=== PATIENT | female | born 1990 | race Caucasian/White ===

== ENCOUNTER 2020-10-11 21:25 | Emergency (ER) | payer OTHER ==
[~2020-10-11] VITALS: Ht 167.6 cm; Wt 54.5 kg
[2020-10-11] MEDS ORDERED: diphenhydrAMINE 50MG/ML VIAL (J1200) IM STA (23:06)
[2020-10-12 00:21] LABS: BASO # 0.1 10^3/uL (0.0-0.2); BASO % 1.4 % (0.0-1.0); EOS # 0.1 10^3/uL (0.0-0.5); EOS % 1.4 % (0.0-3.0); HEMOGLOBIN 14.5 g/dl (12.0-15.5); LYMPH # 2.1 10^3/uL (1.5-5.0); LYMPH % 42.4 % (24.0-44.0); MEAN CORPUSCULAR HEMOGLOBIN 29.7 pg (27.0-33.0); MEAN CORPUSCULAR HGB CONC 34.5 g/dl (32.0-36.5); MEAN CORPUSCULAR VOLUME 86.1 fl (80.0-96.0); MONO # 0.5 10^3/uL (0.0-0.8); MONO % 10.9 % (2.0-8.0); NEUTROPHILS # 2.1 10^3/uL (1.5-8.5); NEUTROPHILS % 43.7 % (36.0-66.0); PLATELET COUNT, AUTOMATED 291 10^3/uL (150-450); RED BLOOD COUNT 4.88 10^6/uL (4.00-5.40); WHITE BLOOD COUNT 4.9 10^3/uL (4.0-10.0)
[2020-10-12 00:51] LABS: RSV AMPLIFICATION NEGATIVE (NEGATIVE)
[2020-10-12 00:53] LABS: HCG, SERUM QUALITATIVE NEGATIVE (NEGATIVE)
[2020-10-12 00:57] LABS: ACETAMINOPHEN LEVEL < 2.0 UG/ML (10.0-30.0); ALBUMIN 4.2 GM/DL (3.2-5.2); ALT/SGPT 14 U/L (12-78); BILIRUBIN,DIRECT 0.2 MG/DL (0.0-0.2); BILIRUBIN,TOTAL 0.6 MG/DL (0.2-1.0); BLOOD UREA NITROGEN 7 MG/DL (7-18); CARBON DIOXIDE LEVEL 27 MEQ/L (21-32); CHLORIDE LEVEL 107 MEQ/L (98-107); CREATININE FOR GFR 0.57 MG/DL (0.55-1.30); ETHYL ALCOHOL (ETHANOL) < 0.003 % (0.000-0.010); GLOMERULAR FILTRATION RATE > 60.0 (>60); GLUCOSE, FASTING 90 MG/DL (70-100); POTASSIUM SERUM 3.5 MEQ/L (3.5-5.1); SALICYLATE LEVEL 4.4 MG/DL (5.0-30.0); SODIUM LEVEL 141 MEQ/L (136-145)
[2020-10-12 06:18] LABS: AMPHETAMINES LEVEL URINE POSITIVE (NEGATIVE); BARBITURATES URINE NEGATIVE (NEGATIVE); BENZODIAZEPINES URINE NEGATIVE (NEGATIVE); CANNABINOIDS URINE POSITIVE (NEGATIVE); COCAINE METABOLITE URINE NEGATIVE (NEGATIVE); METHADONE URINE NEGATIVE (NEGATIVE); OPIATES URINE NEGATIVE (NEGATIVE); PHENCYCLIDINE URINE NEGATIVE (NEGATIVE)
[2020-10-12 12:03] VITALS: BP 145/79
--- NOTE | 2020-10-12 13:24 | ECGEPIP ---
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
== END 2020-10-12 12:05 | disposition home or self-care (01) ==
LOC: EDBD 21:25 → M ED 21:25
DX: F15.10 Other stimulant abuse, uncomplicated (principal)
CPT/HCPCS: 36415; 80048; 80076; 80143; 80307; 82077; 84443; 84703; 85025; 87631; 93005; 96372; 99284; J1200

== ENCOUNTER 2020-10-29 10:50 | Inpatient (IN) | payer MEDICAID, OTHER ==
[~2020-10-29] VITALS: Ht 160 cm; Wt 56.7 kg
[2020-10-29] MEDS: NICOTINE 21MG/24HR 1 EA TRANSDERMAL TD SCH (09:00)
[2020-10-29] MEDS ORDERED: traZODone 50 MG TAB PO PRN (17:15)
[2020-10-29] MEDS ORDERED: ACETAMINOPHEN TAB 650MG DOSE (2X325MG) PO PRN (17:15)
[2020-10-29] MEDS ORDERED: MOM 30ML SUSPENSION UDC PO PRN (17:15)
[2020-10-29] MEDS ORDERED: LORazepam 1 MG TAB PO PRN (17:15)
[2020-10-29] MEDS ORDERED: MAALOX 30 ML SUSP *UDC PO PRN (17:15)
[2020-10-29 18:40] VITALS: BP 119/61
[2020-10-30 06:15] VITALS: BP 122/66
[2020-10-30] MEDS: NICOTINE 21MG/24HR 1 EA TRANSDERMAL TD SCH (09:00)
--- NOTE | 2020-10-30 12:49 | MHHPEPDOC ---
General Date Of Admission: October 30, 2020 Legal Status: 9.39 Chief Complaint I'm feeling sick and feeling crappy and I need to help her been using methamphetamine and Suboxone off the street ". History of Present Illness HISTORY OF THE PRESENT ILLNESS: Patient is a 30 -year-old , female, who [has a long history of substance abuse and one previous admission 2 years of but no current outpatient treatment. Patient was transferred from the other hospital by ambulance after she presented herself asking for help. She states that she is been homeless, has been using methamphetamine and Xanax up to 6 mg a day, but her last use was about a week and doesn't think that she would have any acute withdrawal. She is however complaining of feeling sick because she is withdrawing from Suboxone, also feeling depressed but denies any suicidal thoughts. She is asking for immediate relief such as Suboxone or other medicines and is quite demanding and pressured and dramatic. She denies any hallucination, paranoia, denies any ongoing depression and denies any suicidal thoughts, but wants to feel better and wants to go to possibly inpatient rehabilitation. She is again very much demanding and dramatic, and seeking medications to give her immediate relief although her vital signs are within normal limits and she is not showing any other clinical withdrawal symptoms.]. Psychiatric Review of Systems Depression (2 or more weeks): depressed mood, feelings of worthlesness Radha (4 or more days of): denies Psychosis: denies PTSD: denies Anxiety: situational anxiety Past Psychiatric History Previous Psychiatric Diagnosis: [Primarily. Polysubstance abuse]. Previous Psychiatric Admissions: [Was hospitalized 2 years ago once]. Suicide Attempts: [Denies any suicidal attempt history]. Psychiatric Follow-up: [, Not attending any outpatient treatment]. Psychiatric medications: [None]. Past Medical History Medical Problems She denies any major medical history Head Injury: No Seizures: No Hospitalizations: No Surgeries: No Family Medical/Psychiatric HX Psychiatric Disorders: No Addiction: No Suicide Attemps/Completions: No Addiction History amphetamines, opioids, methamphetamines Social History Childhood: [Unremarkable. Abuse/Trauma:[Denies]. Current Living Situation: Homeless for several days]. Education: [GED]. Employment: [, Currently unemployed. History of]. Social Support: Mother]. Legal: [Denies]. Marital: [, Single]. Mental Status Examination General Appearance: unkempt Build: average Demeanor: average, very figety Eye Contact: avoidant Activity: agitated Behavior: uncooperative, restless, other (demanding Suboxone for immediate relief) Speech: rapid, pressured, non-spontaneous Mood: anxious, irritable Affect: full, labile Thought Process: logical/linear Thought Content (Delusions): none reported Thought Content (Other): none reported Thought Content (Aggressive): none reported Perception (Hallucinations): none reported Perception (Other): none reported Cognition (Impairment of): none reported Cognition(Intelligence Est.): average Oriented: Awake, Alert, Oriented times three Insight: poor Judgment: Poor Diagnoses Adjustment disorder with mixed emotion , Polysubstance abuse A-FIB/CHADSVASC A-FIB History Current/History of A-Fib/PAF?: No Current PO Anticoag Therapy: No Age/Risk Factor Scoring CHADSVASC: CHADSVASC Response (Comments) Value Gender Risk Factor Female 1 Hx of CHF No 0 Hx of HTN No 0 Hx of Stroke/TIA/or VTE No 0 Hx of Diabetes No 0 Hx of Vascular Disease No 0 Total 1 Treatment Treatment ordered: NONE Assessment Primarily, polysubstance abuse with the med seeking behavior, complaining of withdrawal symptoms, but no clinical signs or symptoms of severe withdrawal . We will use appropriate when necessary medications with firm supportive approach and consider referring to inpatient rehabilitation treatment Initial Treatment Plan 1. Patient was admitted on a [9.39] status. 2. Complete history was obtained. 3. With patients permission, family will be contacted and database will be expanded. 4. Patients medication regimen will be reviewed and changed accordingly. 5. Patient will be provided with protected environment. 6. Patient will be treated with individual, group, and milieu therapies. 7. Patient will receive supportive psych-education. 8. Discharge planning will commence immediately. 9. Outpatient follow-up treatment will be strongly recommended. 10. The initial treatment plan will focus initially on: * Depression. * Risk for suicide. ESTIMATED LENGTH OF STAY: [3]-[5] DAYS. TIME SPENT COUNSELING AND COORDINATING INITIAL CARE: [40] minutes. Tobacco Cessation Screen If Patient is a Smoker Patient denies being a smoker N/A-No Antipsychotics Vital Signs Vital Signs Date Time Temp Pulse Resp B/P (MAP) Pulse Ox O2 Delivery O2 Flow Rate FiO2 5 10:11 Room Air 5/15/21 06:15 98.1 56 16 122/66 (84) 96 Medications No Active Prescriptions or Reported Meds Allergies Coded Allergies: Penicillins (Verified Allergy, Unknown, 10/11/20) Sulfa (Sulfonamide Antibiotics) (Verified Allergy, Unknown, 10/11/20) KAYODE CONTEH M.D. October 30, 2020 12:49
[2020-10-30] MEDS: OLANZapine ORAL DISINTEGRATING TAB 5MG PO PRN (13:14)
[2020-10-30 13:26] VITALS: BP 131/94
[2020-10-30 16:38] VITALS: BP 116/72
[2020-10-31] MEDS: NICOTINE 21MG/24HR 1 EA TRANSDERMAL TD SCH (09:00)
--- NOTE | 2020-10-31 09:31 | MHIPNPDOC ---
[facility] Progress Note Progress Note DATE OF SERVICE: 10/31/20 On admission, patient was quite demanding of certain medications and was quite agitated. She has a settled down since and is in no acute distress slept with th e increase the trazodone and this morning she has no new complaints. She is in bed in no acute distress and states that she needs help with inpatient rehabilitation treatment, is willing to cooperate. She has not shown any acute withdrawal symptoms, is in no physical distress and no aggressive or suicidal behavior. She is still very childish, pressured but not as hostile or angry and willing to cooperate. She wants help and she denies any suicidal thoughts HISTORY: . VITAL SIGNS: See below. NEW TEST RESULTS: . CURRENT MEDICATIONS: See below. MENTAL STATUS EXAMINATION: Patient is a [30]-year old female, who is [in bed, but alert, awake and cooperative]. Speech: Is [pressured but rational]. Language skills are [fair]. Thought processes including: [, Relevant, organized]. Thought content: [Without any psychotic symptoms]. Abstract reasoning, and computation: [, Fair]. Description of associations: , Organized. Description of abnormal or psychotic thoughts: [None]. Judgment: [, Poor]. Insight: [ poor]. Orientation: [, Oriented]. Recent and remote memory: [Fair]. Attention span and concentration: [Fair]. Language: . Fund of knowledge: Below average . Mood: [, Mildly anxious]. Affect: [Dramatic and labile]. DIAGNOSES: 1. . Adjustment disorder with mixed emotion 2. ., Polysubstance abuse 3. . ASSESSMENT:[, Not as labile, not as demanding and in better control and cooperate] MANAGEMENT PLAN: [. Continue with supportive therapy and consider inpatient rehabilitation treatment]. TIME SPENT: [15] minutes. Vital Signs Vital Signs Date Time Temp Pulse Resp B/P (MAP) Pulse Ox O2 Delivery O2 Flow Rate FiO2 10/31/20 08:42 Room Air 10/30/20 16:38 98.5 58 17 116/72 (87) 10/30/20 13:26 98 Current Medications Current Medications Medications (Trade) Dose Ordered Sig/Inessa Route PRN Reason Start Time Stop Time Status Last Admin Dose Admin Acetaminophen (Tylenol Tab) 650 mg Q6HP PRN PO HEADACHE or DISCOMFORT 10/29/20 17:15 10/30/20 13:15 Al Hydrox/Mg Hydrox/Simethicone (Mylanta) 30 ml Q4HP PRN PO HEARTBURN/INDIGESTION 10/29/20 17:15 Lorazepam (Ativan) 1 mg Q6HP PRN PO ANXIETY/AGITATION 10/29/20 17:15 Magnesium Hydroxide (Milk Of Magnesia) 30 ml DAILYPRN PRN PO CONSTIPATION 10/29/20 17:15 Nicotine (Nicoderm Cq 21mg) 1 patch DAILY TD 10/29/20 09:00 Olanzapine (ZyPREXA ZYDIS) 10 mg Q6HP PRN PO ANXIETY/AGITATION 10/30/20 12:35 10/30/20 13:14 Trazodone HCl (Desyrel) 50 mg QHSP PRN PO INSOMNIA 10/29/20 17:15 Allergies Coded Allergies: Penicillins (Verified Allergy, Unknown, 10/11/20) Sulfa (Sulfonamide Antibiotics) (Verified Allergy, Unknown, 10/11/20) KAYODE CONTEH M.D. October 31, 2020 09:31
--- NOTE | 2020-10-31 12:12 | HPEPDOC ---
[facility] Medical History & Physical Date of Admission October 30, 2020 Date of Service: October 31, 2020 Attending Physician: BARB LOU MD History and Physical CHIEF COMPLAINT: Depressed HISTORY OF PRESENT ILLNESS: 30-year-old W with a history of PSUD admitted to inpatient mental health unit for depression and PSUD as a transfer from an outside facility, and whom internal medicine is consulted for medical evaluation. She denies any medical complaints at this time and is concerned about potential withdrawal and wants Suboxone. PAST MEDICAL HISTORY: 1. Asthma. 2. Polysubstance abuse. 3. IV drug abuse 4. Schizoaffective disease ALLERGIES: Please see below. REVIEW OF SYSTEMS: Negative except as per HPI. HOME MEDICATIONS: Please see below. PHYSICAL EXAMINATION: VITAL SIGNS: See below HEENT: NC/AT, poor dentition Lungs: CTA B/L Heart: +S1S2, RRR Abd: Normoactive sounds, soft, NTND Ext: WWP, no edema Neuro: AOx3, normal gait, grossly nonfocal examination LABORATORY DATA: Reviewed A/P: 29 yo W with a histoyr of PSUD admitted to [facility] for depressed mood and internal medicine is consulted for medical evaluation. #Depressed mood i/s/o recent meth use and PSUD - Management as per primary team #asthma -Stable, without evidence of exacerbation. Thank you for this consultation. Please re-consult as needed. Vital Signs Vital Signs Date Time Temp Pulse Resp B/P (MAP) Pulse Ox O2 Delivery O2 Flow Rate FiO2 10/31/20 08:42 Room Air 10/30/20 16:38 98.5 58 17 116/72 (87) 10/30/20 13:26 98 Home Medications No Active Prescriptions or Reported Meds Allergies Coded Allergies: Penicillins (Verified Allergy, Unknown, 10/11/20) Sulfa (Sulfonamide Antibiotics) (Verified Allergy, Unknown, 10/11/20) A-FIB/CHADSVASC A-FIB History Current/History of A-Fib/PAF?: No Current PO Anticoag Therapy: No Age/Risk Factor Scoring CHADSVASC: CHADSVASC Response (Comments) Value Age Risk Factor Age < 65 years old 0 Gender Risk Factor Female 1 Hx of CHF No 0 Hx of HTN No 0 Hx of Stroke/TIA/or VTE No 0 Hx of Diabetes No 0 Hx of Vascular Disease No 0 Total 1 Treatment Treatment ordered: NONE Reason Anticoagulant not given: Not indicated/[id number] BARB LOU MD October 31, 2020 11:41
[2020-10-31] MEDS: OLANZapine ORAL DISINTEGRATING TAB 5MG PO PRN (23:56)
[2020-11-01] MEDS: NICOTINE 21MG/24HR 1 EA TRANSDERMAL TD SCH (09:00)
--- NOTE | 2020-11-01 12:48 | MHDSPDOC ---
[facility] Discharge Summary Discharge Summary DATE OF ADMISSION: October 29, 2020 at 17:15 DATE OF DISCHARGE: November 01, 2020 at 11:35 DISCHARGE DIAGNOSES: Adjustment disorder with mixed emotion Polysubstance abuse REASON FOR ADMISSION: Patient is a 30 -year-old , female, with a long history of substance abuse and one previous admission 2 years of but no current outpatient treatment. Patient was transferred from the other hospital by ambulance after she presented herself asking for help. She states that she is been homeless, has been using methamphetamine and Xanax up to 6 mg a day, but her last use was about a week and doesn't think that she would have any acute withdrawal. She is however complaining of feeling sick because she is withdrawing from Suboxone, also feeling depressed but denies any suicidal thoug hts. She is asking for immediate relief such as Suboxone or other medicines and is quite demanding and pressured and dramatic. She denies any hallucination, paranoia, denies any ongoing depression and denies any suicidal thoughts, but wants to feel better and wants to go to possibly inpatient rehabilitation. She is again very much demanding and dramatic, and seeking medications to give her immediate relief although her vital signs are within normal limits and she is not showing any other clinical withdrawal symptoms. VITAL SIGNS: See below. CONSULTANTS INVOLVED: See Medical H + P by Hospitalist TREATMENT AND PROGRESS ON THE UNIT: Patient was admitted to the [facility] on a 9.39 legal status he was afforded the following treatment modalities: 1) Individual Therapy 2) Group Therapy 3) Medication Management 4) Milieu Therapy 5) Safe Environment HOSPITAL COURSE: Patient is a 30 -year-old , female, with a long history of substance abuse who was transferred from another hospital by ambulance after she presented herself asking for help because she was going through acute withdrawal from substances. She had been using Methamphetamine and Xanax and was demanding for Suboxone or other medications to relieve her withdrawal symptoms. Per staff notes, over the weekend she was disheveled and in hospital attire, eye contact was poor, was hostile and focused on getting suboxone. She was difficult to approach. She did not attend groups and was uncooperative when staff attempted to engage her 1:1. Today, she remains h ostile, labile, poor eye contact. Agreed to meet in the interview room and was asking to be discharged. States that she is not getting help by being in the hospital. States You people are not doing nothing for me! Im going through withdrawal and you wont give me suboxone. Patient does not have a prescription for Suboxone. States just get me out of here! Attempted to engage the patient to mitigate some oh her dissatisfaction. This was the first time this provider was seeing the patient as she was admitted over the weekend. Patient refused to engage in meaningful conversation and was focused on getting Suboxone. She has poor insight. She complained of not getting her breakfast. Patient slept through breakfast time. Patient was getting agitated and cut the interview short. Continued to repeatedly say " just get me out of here". She meets the criteria for discharge and will be discharged today. DISCHARGE ASSESSMENT: In today's interview, patient is alert and oriented, She is dressed in hospital clothing and is unkempt. She is difficult to engaged in the interview. Denies depression and anxiety. Denies suicidal and homicidal ideation, planning or intent. Denies and is not observed with nay, psychotic symptoms of delusions, bizarre thinking, obsessions, paranoia, ruminations illogical thoughts, flight of ideas or having poor insight and judgement. Patient has normal mentation, declines further hospitalization on a voluntary status and meets criteria for discharge today. Patient encouraged to return to hospital if symptoms worsen or change and encouraged to call unit if he/she/they needs to speak to provider for questions regarding medications or care. MENTAL STATUS EXAMINATION ON DISCHARGE: Patient is a 30 -year-old , female, with a long history of substance abuse who was transferred from another hospital by ambulance after she presented herself asking for help because she was going through acute withdrawal from substances. Speech: Is fast rate, tone and normal volume Language skills are intact Thought processes including: linear Thought content: denies depression and anxiety. Denies suicidal/homicidal ideati on, planning or intent. Abstract reasoning, and computation: fair Description of associations: denies, none observed Description of abnormal or psychotic thoughts: denies, none observed. Judgment: poor Insight: poor Orientation: alert and oriented to person, place, time and situation Recent and remote memory: intact Attention span and concentration: impaired Language: expansive Fund of knowledge: average Mood: Irritable Mood Affect:Labile, hostile MEDICATIONS ON DISCHARGE: See Medication Reconciliation PLAN/FOLLOWUP ARRANGEMENTS: Patient did want referrals The amount of time spent in the coordination of care for this patient was approximately 25 minutes. ETOH/Disorder Med Rx ETOH/DRUG DISORDER RX: Offrd @ d/c & pt refused Vital Signs/I&Os Vital Signs Date Time Temp Pulse Resp B/P (MAP) Pulse Ox O2 Delivery O2 Flow Rate FiO2 11/01/20 08:56 Room Air 10/30/20 16:38 98.5 58 17 116/72 (87) 10/30/20 13:26 98 Medications No Active Prescriptions or Reported Meds Allergies Coded Allergies: Penicillins (Verified Allergy, Unknown, 10/11/20) Sulfa (Sulfonamide Antibiotics) (Verified Allergy, Unknown, 10/11/20) CRISELDA PAZ NP November 01, 2020 12:48
== END 2020-11-01 11:35 | disposition home or self-care (01) | DRG 755 ==
LOC: M ED 10:50 → M ED INP 17:15 → M PSY 18:35
PROVIDERS: ADMIT Psychiatry & Neurology Psychiatry; ATTEND Psychiatry & Neurology Psychiatry
DX: F43.25 Adjustment disorder with mixed disturbance of emotions and conduct (principal); F19.10 Other psychoactive substance abuse, uncomplicated; J45.909 Unspecified asthma, uncomplicated; F15.14 Other stimulant abuse with stimulant-induced mood disorder; Z88.2 Allergy status to sulfonamides; Z88.0 Allergy status to penicillin

== ENCOUNTER 2020-11-14 22:03 | Inpatient (IN) | payer MEDICAID, OTHER ==
[~2020-11-14] VITALS: Ht 160 cm; Wt 56.6 kg
[2020-11-15] MEDS ORDERED: OLANZapine ORAL DISINTEGRATING TAB 5MG PO ONE (10:50)
[2020-11-15] MEDS ORDERED: KETOROLAC TROMETHAMINE 10 MG TAB PO ONE (10:50)
[2020-11-16] MEDS ORDERED: KETOROLAC TROMETHAMINE 10 MG TAB PO ONE (07:45)
[2020-11-16] MEDS ORDERED: OLANZapine ORAL DISINTEGRATING TAB 5MG PO ONE (07:45)
[2020-11-16] MEDS: NICOTINE 21MG/24HR 1 EA TRANSDERMAL TD SCH (09:00)
[2020-11-16] MEDS ORDERED: LORazepam 1 MG TAB PO STA (10:54)
[2020-11-16] MEDS ORDERED: ACETAMINOPHEN TAB 650MG DOSE (2X325MG) PO PRN (16:30)
[2020-11-16] MEDS ORDERED: MOM 30ML SUSPENSION UDC PO PRN (16:30)
[2020-11-16] MEDS ORDERED: MAALOX 30 ML SUSP *UDC PO PRN (16:30)
[2020-11-16] MEDS ORDERED: traZODone 50 MG TAB PO PRN (16:30)
[2020-11-16] MEDS ORDERED: OLANZapine ORAL DISINTEGRATING TAB 5MG PO PRN (18:15)
[2020-11-17 06:00] VITALS: BP 102/55
[2020-11-17] MEDS: NICOTINE 21MG/24HR 1 EA TRANSDERMAL TD SCH (09:00)
[2020-11-17] MEDS ORDERED: NICO21PAT TD (09:14)
--- NOTE | 2020-11-17 16:38 | MHHPEPDOC ---
General Date Of Admission: Nov 16, 2020 Legal Status: 9.39 Chief Complaint "I want help for withdrawal!". History of Present Illness HISTORY OF THE PRESENT ILLNESS: Patient is a 30 -year-old Single, Unemployed, Domiciled, , female, who has a long history of polysubstance use. She was most recently admitted and discharged from this facility on 10/29/2020 to 11/01/2020. According to the ED report, patient self presented to [facility] complaining of auditory hallucinations. She became increasingly paranoid, belligerent towards the staff in head to be chemically restrained in the emergency department due to her being uncooperative, demanding, increasing paranoia, hallucinations, and bizarre behaviors. She was subsequently transferred to [facility] under 9.57 Per ED Report: T/w met with pt. at bedside. pt. did not appear to be responding to internal stimuli. Pt was laying in bed when t/w entered the room and explained MHE. Pt continued laying down and immediately turned her body and head away from t/w and covered herself with a blanket from head to toe. Pt was not too willing to answer t/w's questions, and was verbally hostile and aggressive. T/w asked pt why she presented to [facility] and she stated "Pam I was being shunned by the catholic so I was upset okay?! I'm fine leave me alone!" Pt then stated she went to [place] because someone was putting voices in her head and she is sick of it. Pt was unable to identify any specific symptoms or stressors going on in her life at this time. Pt reports no issues with appetite, but then stated she was hungry now because she hasn't ate in several days. Pt also reports she has a hard time sleeping, both falling asleep and staying asleep, however pt. was sleeping upon arrival to this ED, and pt.s report from [facility] reported pt. slept for the majority of her stay there. Pt denied any si/hi/ah/vh/self-injury or a history of any of them. She stated she had never been admitted into an inpatient mental health unit, and that she has no Hx of trauma, abuse, mental health diagnosis, family Hx of mental health, or outpatient services, however per pt.s EHR and past visits, pt. does have a Hx of mental health diagnosis, past outpatient treatment, and inpatient admissions, with pt.s most recent admission being to [facility] 10/29/20-11/01/20. When asked about the discrepancy in regards to pt. first stating she had AH, then denying AH to t/w, pt. yelled "I don't hear voices!." However, after discussing stressors and why pt. presented to [place] ED again moments later, pt. stated she is not hearing voices at this moment, but that she does and that is why she went to the ED. Pt then stated she doesn't know when the last time she heard voices was. Pt reports smoking a pack of cigarettes per day, denies alcohol use, and reports occasionally smoking marijuana, however pt. has an extensive Hx of polysubstance abuse. Pt unwilling to participate in MHE further, and stated she is "tired of the catholic shunning her, sick of them accusing her and putting voices in her head." Pt stated she does want to be admitted and that she cannot CFS. When I met with this patient this morning, she demanded Suboxone for which she is not prescribed. She then demanded something for her withdrawal symptoms, but refused to answer any of the questions in the evaluation. She stated "Just discharge me. I don't want your help, if you aren't giving me Suboxone, I don't want to be here." Reinforced with patient that Suboxone could not be prescribed for patient as she has been non-compliant and not going to outpatient services at [facility]. She demanded to be discharged and would not participate in the interview. Psychiatric Review of Systems Depression (2 or more weeks): denies, other (patient is agitated, belligerent, demanding, uncooperative and refusing to answer questions) Radha (4 or more days of): denies, other (patient is agitated, uncooperative and refusing to answer questions) Psychosis: auditory hallucination, paranoia, other (patient is agitated, uncooperative and refusing to answer questions) PTSD: denies, other (patient is agitated, belligerent, demanding, uncooperative and refusing to answer questions) Anxiety: denies, other (patient is agitated, belligerent, demanding, uncooperative and refusing to answer questions) Anxiety/ 6 months or more of: personality cluster A,BC (Borderline Personality Disorder), other (patient is agitated, uncooperative and refusing to answer questions) Past Psychiatric History Previous Psychiatric Diagnosis: Polysubstance abuse Previous Psychiatric Admissions:. Most recent hospitalization 10/29/20 to 11/01/2020. Suicide Attempts: Denies any suicide attempts. Psychiatric Follow-up:, Does not attend any outpatient treatment. Has been noncompliant. On 2 other occasions, patient demanded Suboxone, but she is not prescribed Suboxone as she is not compliant with follow-up Psychiatric medications:, None. Past Medical History Medical Problems Denies any Medical History, obtained from last history and physical. Patient is uncooperative. Today Head Injury: No Seizures: No Hospitalizations: Yes Surgeries: No Family Medical/Psychiatric HX Medical Problems Much of this information is obtained from her last history as patient is uncooperative with evaluation today Psychiatric Disorders: No Addiction: No Suicide Attemps/Completions: No Addiction History amphetamines, opioids, methamphetamines Social History Childhood: Grew up in the area was most recently living with her mother last year and she and her mother had an argument in mother asked her to leave Abuse/Trauma: On her last H&P. She denied abuse or trauma Current Living Situation:, Living alone, has had periods of homelessness. Education: . Employment:, Unemployed. Social Support:, Last reports that she has social support by her mother. Legal: Per her last H&P, she denies history of legal issues. Marital: Single Mental Status Examination General Appearance: unkempt, disheveled, appears stated age, hospital scubs/clothing Build: average Demeanor: hostile, mistrustful Eye Contact: intense Activity: hostile Behavior: agitated, other (demanding and uncooperative) Speech: pressured, spontaneous, other (, loud) Mood: angry Affect: inappropriate, labile, hostile Thought Process: logical/linear Thought Content (Delusions): denies SI, HI, AVH Thought Content (Other): other (med seeking behaviors) Thought Content (Aggressive): aggressive (assess) Perception (Hallucinations): none reported Cognition (Impairment of): attention/concentration Cognition(Intelligence Est.): average Oriented: Awake, Alert, Oriented times three Insight: fair Judgment: Fair Psychosis: Denies Diagnoses Unspecified psychotic disorder Amphetamine use disorder Opioid used disorder. Methamphetamine use disorder Rule out methamphetamine induced psychotic disorder Rule out Borderline personality disorder A-FIB/CHADSVASC A-FIB History Current/History of A-Fib/PAF?: No Current PO Anticoag Therapy: No Assessment Patient is a 30-year-old single, unemployed domiciled female with multiple admissions to this facility for similar presentation. Her last admission was 10/29/2020 to 11/01/2020. On that occasion, Patient wanted to be discharged and refused any follow-up care to [facility] where she could be prescribed started on Suboxone. On this occasion, she self presented to [facility] complaining of auditory hallucinations. She is paranoid and exhibiting bizarre behavior. He reported that someone was putting voices in her head. She was sick of it. He also complained of poor sleep, both falling asleep in reading difficulty staying asleep. She has stated to the ED that she has never been admitted to the inpatient mental health unit and that she has no his tory of trauma, abuse, mental health diagnosis family history of mental health or any outpatient services. On this occasion on the initial interview, patient demanded Suboxone and/or medication for withdrawal. Reinforced with patient that she has been noncompliant with outpatient services and has not been receiving Suboxone in many months. . She then demanded to be discharged and refused to cooperate or participate in the interview. At this time due to patient's denial of any abnormal mental health illnesses, denying depression, anxiety or suicidal or homicidal thoughts. She is however observed to be hostile, demanding and agitated. She refuses any help when it is offered and states she does not want to stay for any further assistance. Initial Treatment Plan 1. Patient was admitted on a [9.39] status. 2. Complete history was obtained. 3. With patients permission, family will be contacted and database will be expanded. 4. Patients medication regimen will be reviewed and changed accordingly. 5. Patient will be provided with protected environment. 6. Patient will be treated with individual, group, and milieu therapies. 7. Patient will receive supportive psych-education. 8. Discharge planning will commence immediately. 9. Outpatient follow-up treatment will be strongly recommended. 10. The initial treatment plan will focus initially on: * Altered thoughts * Substance use ESTIMATED LENGTH OF STAY: 1 to 3 DAYS. TIME SPENT COUNSELING AND COORDINATING INITIAL CARE: 60 minutes. Tobacco Cessation Screen Tobacco Cessation Tx Ordered?: No r/t failed trials Pt Refused Vital Signs Vital Signs Date Time Temp Pulse Resp B/P (MAP) Pulse Ox O2 Delivery O2 Flow Rate FiO2 11/17/20 06:00 97.6 64 16 102/55 (71) 97 Room Air Medications Scheduled Nicotine (Nicotine Patch) 21 Mg Patch.td24, 1 PATCH TD DAILY for Nicotine Withdrawal Allergies Coded Allergies: gabapentin (Verified Allergy, Intermediate, RASH, 11/14/20) Penicillins (Verified Allergy, Unknown, 10/11/20) Sulfa (Sulfonamide Antibiotics) (Verified Allergy, Unknown, 10/11/20) CRISELDA PAZ NP Nov 17, 2020 16:17
--- NOTE | 2020-11-17 17:40 | MHDSPDOC ---
[facility] Discharge Summary Discharge Summary DATE OF ADMISSION: Nov 16, 2020 at 16:28 DATE OF DISCHARGE: Nov 17, 2020 at 10:25 DISCHARGE DIAGNOSES: Unspecified psychotic disorder Amphetamine use disorder Opioid used disorder. Methamphetamine use disorder Rule out methamphetamine induced psychotic disorder Rule out Borderline personality disorder REASON FOR ADMISSION: Patient is a 30 -year-old Single, Unemployed, Domiciled, , female, who has a long history of polysubstance use. She was most recently admitted and discharged from this facility on 10/29/2020 to 11/01/2020. According to the ED report, patient self-presented to [facility] complaining of auditory hallucinations. She became increasingly paranoid, belligerent towards the staff in head to be chemically restrained in the emergency department due to her being uncooperative, demanding, increasing paranoia, hallucinations, and bizarre behaviors. She was subsequently transferred to [facility] under 9.57 Per ED Report: T/w met with pt. at bedside. pt. did not appear to be responding to internal stimuli. Pt was lying in bed when t/w entered the room and explained MHE. Pt continued laying down and immediately turned her body and head away from t/w and covered herself with a blanket from head to toe. Pt was not too willing to answer t/w's questions, and was verbally hostile and aggressive. T/w asked pt why she presented to [facility] and she stated "Pam I was being shunned by the latter day so I was upset okay?! I'm fine leave me alone!" Pt then stated she went to [facility] because someone was putting voices in her head and she is sick of it. Pt was unable to identify any specific symptoms or stressors going on in her life at this time. Pt reports no issues with appetite, but then stated she was hungry now because she hasn't ate in several days. Pt also reports she has a hard time sleeping, both falling asleep and staying asleep, however pt. was sleeping upon arrival to this ED, and pt.s report from [facility] reported pt. slept for the majority of her stay there. Pt denied any si/hi/ah/vh/self-injury or a history of any of them. She stated she had never been admitted into an inpatient mental health unit, and that she has no Hx of trauma, abuse, mental health diagnosis, family Hx of mental health, or outpatient services, however per pt.s EHR and past visits, pt. does have a Hx of mental health diagnosis, past outpatient treatment, and inpatient admissions, with pt.s most recent admission being to [facility] 10/29/20-11/01/20. When asked about the discrepancy in regards to pt. first stating she had AH, then denying A H to t/w, pt. yelled "I don't hear voices!." However, after discussing stressors and why pt. presented to [facility] ED again moments later, pt. stated she is not hearing voices at this moment, but that she does and that is why she went to the ED. Pt then stated she doesn't know when the last time she heard voices was. Pt reports smoking a pack of cigarettes per day, denies alcohol use, and reports occasionally smoking marijuana, however pt. has an extensive Hx of polysubstance abuse. Pt unwilling to participate in MHE further, and stated she is "tired of the latter day shunning her, sick of them accusing her and putting voices in her hea d." Pt stated she does want to be admitted and that she cannot CFS. VITAL SIGNS: See below. CONSULTANTS INVOLVED: See Medical H + P by Hospitalist TREATMENT AND PROGRESS ON THE UNIT: Patient was admitted to the [facility] on a 9.39 legal status he was afforded the following treatment modalities: 1) Individual Therapy 2) Group Therapy 3) Medication Management 4) Milieu Therapy 5) Safe Environment HOSPITAL COURSE: Patient is a 30-year-old single, unemployed domiciled female with multiple admissions to this facility for similar presentation. Her last admission was 10/29/2020 to 11/01/2020. On that occasion, Patient wanted to be discharged and refused any follow-up care to [facility] where she could be prescribed started on Suboxone. On this occasion, she self presented to [facility] complaining of auditory hallucinations. She is paranoid and exhibiting bizarre behavior. He reported that someone was putting voices in her head. She was sick of it. He also complained of poor sleep, both falling asleep in reading difficulty staying asleep. She has stated to the ED that she has never been admitted to the inpatient mental health unit and that she has no history of trauma, abuse, mental health diagnosis family history of mental health or any outpatient services. On initial interview, patient demanded Suboxone and/or medication for withdrawal. Reinforced with patient that she has been noncompliant with outpatient services and has not been receiving Suboxone in many months. It is postulated that she may be selling the Suboxone in order to buy other illegal substances. She then demanded to be discharged and refused to cooperate or participate in the interview. At this time due to patient's denial of any abnormal mental health illnesses, denying depression, anxiety or suicidal or homicidal thoughts. She is however observed to be hostile, demanding and agitated. She refuses any help when it is offered and states she does not want to stay for any further assistance. This is the similar presentation at her last discharge from this facility last month where she demanded to be discharged and refusing all care. DISCHARGE ASSESSMENT: In today's interview, patient is alert and oriented, pts dress is appropriate. Hygiene and grooming is unkempt in the interview. Denies depression and anxiety. Denies suicidal and homicidal ideation, planning or intent. Denies and is not observed with nay, psychotic symptoms of delusions, bizarre thinking, obsessions, paranoia, ruminations illogical thoughts, flight of ideas or having poor insight and judgement. Patient has normal mentation, declines further hospitalization on a voluntary status and demands discharge today. MENTAL STATUS EXAMINATION ON DISCHARGE: Patient is a 30 -year-old Single, Unemployed, Domiciled, , female, who has a long history of polysubstance use who self-presented to [facility] complaining of auditory hallucinations. She became increasingly paranoid, belligerent towards the staff in head to be chemically restrained in the emergency department due to her being uncooperative, demanding, increasing paranoia, hallucinations, and bizarre behaviors. She was subsequently transferred to [facility] under 9.57 Speech: Is loud tone and volume Language skills are intact Thought processes including: linear and goal oriented Thought content: denies depression and anxiety. Denies suicidal/homicidal ideation, planning or intent. Abstract reasoning, and computation: fair Description of associations: denies, but med-seeking behaviors Description of abnormal or psychotic thoughts: denies, none observed. Judgment: fair Insight: fair Orientation: alert and oriented to person, place, time and situation Recent and remote memory: intact Attention span and concentration: fair Language: expansive Fund of knowledge: average Mood: Agitated, Hostile Mood Affect: Irritable, Hostile MEDICATIONS ON DISCHARGE: See Medication Reconciliation PLAN/FOLLOWUP ARRANGEMENTS: The amount of time spent in the coordination of care for this patient was approximately 10 minutes. ETOH/Disorder Med Rx ETOH/DRUG DISORDER RX: Offrd @ d/c & pt refused (Patient demanded Suboxone but is not prescribed by [facility], is not compliant at their facility and refuses to follow up with any Rehab or Outpatient Mental Health Providers) Vital Signs/I&Os Vital Signs Date Time Temp Pulse Resp B/P (MAP) Pulse Ox O2 Delivery O2 Flow Rate FiO2 11/17/20 06:00 97.6 64 16 102/55 (71) 97 Room Air Medications Scheduled Nicotine (Nicotine Patch) 21 Mg Patch.td24, 1 PATCH TD DAILY for Nicotine Withdrawal, #7 Allergies Coded Allergies: gabapentin (Verified Allergy, Intermediate, RASH, 11/14/20) Penicillins (Verified Allergy, Unknown, 10/11/20) Sulfa (Sulfonamide Antibiotics) (Verified Allergy, Unknown, 10/11/20) CRISELDA PAZ NP Nov 17, 2020 17:40
== END 2020-11-17 10:25 | disposition home or self-care (01) | DRG 773 ==
LOC: M ED 22:03 → M ED INP 11-16 16:28 → M PSY 11-16 17:03
PROVIDERS: ADMIT Psychiatry & Neurology Psychiatry; ATTEND Psychiatry & Neurology Psychiatry
DX: F15.159 Other stimulant abuse with stimulant-induced psychotic disorder, unspecified (principal); F11.10 Opioid abuse, uncomplicated; F60.3 Borderline personality disorder; F17.210 Nicotine dependence, cigarettes, uncomplicated; Z91.19 Patient's noncompliance with other medical treatment and regimen; Z88.0 Allergy status to penicillin; Z88.2 Allergy status to sulfonamides; Z88.8 Allergy status to other drugs, medicaments and biological substances